=== PATIENT | female | born 1945 | race Caucasian/White ===

== ENCOUNTER 2018-07-10 17:05 | Emergency (ER) | payer OTHER ==
[2018-07-10] MEDS: HYDROCODONE/APAP (5/325) TAB PO (18:49)
[2018-07-10] MEDS: ONDANSETRON (ODT) 4 MG TAB ODT (18:50)
[2018-07-10] MEDS: KETOROLAC 30 MG INJ IM (20:37)
== END 2018-07-10 20:42 | disposition home or self-care (01) ==
LOC: FTE 17:05
DX: S13.4XXA Sprain of ligaments of cervical spine, initial encounter (principal); R51 Headache; V49.49XA Driver injured in collision with other motor vehicles in traffic accident, initial encounter
CPT/HCPCS: 70450; 72125; 96372; 99285-25